=== PATIENT | male | born 1945 | race Caucasian/White ===

== ENCOUNTER 2016-06-19 12:20 | Inpatient (IN) | payer OTHER, BC ==
[~2016-06-19] VITALS: Ht 170.2 cm; Wt 63.9 kg
[~2016-06-19 12:20] MED LIST: ADULT LOW DOSE81 M1 PO; ADVAIR 500/501 DISK IH; ATROVENT 00.5 MG/2.5 IH; CARDIZEM CD,CA180 MG PO; CEFTIN250 MG PO; CILOSTAZOL100 MG PO; FLONASE16 G1 BOTH NARES; HYDROCHLOROTHIA25 MG PO; K-DUR20 MEQ PO; LASIX40 MG PO; LIPITOR40 MG PO; LO-DOSE ASPIRIN81 M1 PO; PANTOPRAZOLE SO40 MG PO; PLETAL100 M1 PO; PREDNISONE10 MG PO; TOPROL XL25 MG PO; TRAMADOL HCL50 MG PO; TYLENOL EXTRA500 MG PO; VENTOLIN HFA18 GM IH; XOPENEX1.25 MG/0. AEROSOL
[2016-06-19 13:02] LABS: HEMATOCRIT 40.2 % (38.0-50.0); MCH 31.6 PG (29.0-34.0); MCHC 34.1 G/DL (30.0-36.0); MCV 92.6 FL (86-99); MEAN PLAT.VOLUME 9.6 uM^3 (9.0-12.4); PLATELET COUNT 229 K/uL (156-360); RBC DIS.WIDTH-CV 12.4 % (11.8-14.6); RBC DIS.WIDTH-SD 42.5 % (39-53); RED BLOOD COUNT 4.34 M/uL (4.00-5.50)
[2016-06-19 13:03] LABS: WHITE BLOOD COUNT 14.6 K/uL (4.1-10.2)
[2016-06-19 13:11] LABS: CHLORIDE 102 mEq/L (99-109); POTASSIUM 3.7 mEq/L (3.7-5.4); SODIUM 137 mEq/L (136-147)
[2016-06-19 13:12] LABS: GLUCOSE 123 mg/dL (70-99)
[2016-06-19 13:14] LABS: ANION GAP 11 MEQ/L (2-14)
[2016-06-19 13:16] LABS: GFR ESTIMATE (CALCULATED) 53 mL/min/
[2016-06-19 13:17] LABS: UREA NITROGEN (BUN) 21 mg/dL (9-23)
[2016-06-19 13:23] LABS: TROP-I INTERPRETATION NEGATIVE; TROPONIN-I 0.05 ng/mL (0.0-0.30)
[2016-06-19] MEDS ORDERED: TAMSULOSIN HCL0.4 MG PO (15:23)
[2016-06-19] MEDS ORDERED: NASONEX17 GM BOTH NARES (15:23)
[2016-06-19] MEDS ORDERED: PREDNISONE10 MG PO (15:23)
[2016-06-19] MEDS ORDERED: FINASTERIDE5 MG PO (15:24)
[2016-06-19] MEDS ORDERED: CENTRUM SILVER1 EAC3 PO (15:24)
[2016-06-19] MEDS ORDERED: VENTOLIN HFA18 GM IH (15:25)
[2016-06-19 23:50] VITALS: BP 114/69
[2016-06-20 04:20] VITALS: BP 110/71
[2016-06-20 06:06] LABS: HEMATOCRIT 35.1 % (38.0-50.0); MCH 31.4 PG (29.0-34.0); MCHC 34.5 G/DL (30.0-36.0); MCV 91.2 FL (86-99); MEAN PLAT.VOLUME 10.2 uM^3 (9.0-12.4); PLATELET COUNT 215 K/uL (156-360); RBC DIS.WIDTH-CV 12.4 % (11.8-14.6); RBC DIS.WIDTH-SD 41.5 % (39-53); RED BLOOD COUNT 3.85 M/uL (4.00-5.50); WHITE BLOOD COUNT 11.4 K/uL (4.1-10.2)
[2016-06-20 06:25] LABS: ANION GAP 13 MEQ/L (2-14); CHLORIDE 99 MEQ/L (99-109); GFR ESTIMATE (CALCULATED) 49 mL/min/; POTASSIUM 3.4 MEQ/L (3.7-5.4); SAMPLE HEMOLYSIS CHECK 0; SAMPLE ICTERIC CHECK 0; SAMPLE LIPEMIA CHECK 0; SODIUM 135 MEQ/L (136-147)
[2016-06-20 06:29] LABS: GLUCOSE 253 mg/dL (70-99); UREA NITROGEN (BUN) 33 mg/dL (9-23)
[2016-06-20 07:54] VITALS: BP 121/64
[2016-06-20 08:02] LABS: INTERNAL CONTROL VALID? YES
[2016-06-20 11:33] VITALS: BP 124/68
[2016-06-20 15:54] VITALS: BP 110/60
[2016-06-20 20:02] VITALS: BP 123/55
[2016-06-21] VITALS: BP 114/62
[2016-06-21 04:00] VITALS: BP 119/59
[2016-06-21 06:01] LABS: ANION GAP 9 MEQ/L (2-14); CHLORIDE 102 MEQ/L (99-109); GFR ESTIMATE (CALCULATED) 37 mL/min/; GLUCOSE 241 mg/dL (70-99); POTASSIUM 3.6 MEQ/L (3.7-5.4); SAMPLE HEMOLYSIS CHECK 0; SAMPLE ICTERIC CHECK 0; SAMPLE LIPEMIA CHECK 0; SODIUM 135 MEQ/L (136-147); UREA NITROGEN (BUN) 49 mg/dL (9-23)
[2016-06-21 06:18] LABS: EOSINOPHIL (%) 0 % (0-5); IMMATURE GRANULOCYTE (%) 0.7 % (0.0-0.7); IMMATURE GRANULOCYTE COUNT 0.1 K/uL; INSTRUMENT ABS NEUTROPHIL CT 13.9 K/uL; LYMPHOCYTE COUNT 0.4 K/uL (1.0-2.8); MCHC 34.1 G/DL (30.0-36.0); MCV 90.9 FL (86-99); MEAN PLAT.VOLUME 10.2 uM^3 (9.0-12.4); MONOCYTE (%) 4.6 % (3-12); MONOCYTE COUNT 0.7 K/uL (0-0.8); NEUTROPHIL COUNT 13.9 K/uL (1.8-6.4); PLATELET COUNT 241 K/uL (156-360); RBC DIS.WIDTH-CV 12.4 % (11.8-14.6); RBC DIS.WIDTH-SD 41.4 % (39-53); RED BLOOD COUNT 3.74 M/uL (4.00-5.50)
[2016-06-21 06:27] LABS: WHITE BLOOD COUNT 15.1 K/uL (4.1-10.2)
[2016-06-21 08:06] VITALS: BP 103/63
[2016-06-21 08:15] LABS: Estimated Average Glucose 128 mg/dL (70-123); HEMOGLOBIN A1c (GLYCOHEMOGLOB) 6.1 % HGB (Below 5.7)
[2016-06-21 11:13] VITALS: BP 108/58
[2016-06-21 15:13] VITALS: BP 111/61
[2016-06-21 20:00] VITALS: BP 134/58
[2016-06-22] VITALS (7 sets, daily range): BP systolic 105–147; BP diastolic 58–93
[2016-06-22 07:08] LABS: HEMATOCRIT 33.3 % (38.0-50.0); MCH 31.2 PG (29.0-34.0); MCHC 34.2 G/DL (30.0-36.0); MCV 91.2 FL (86-99); MEAN PLAT.VOLUME 10.3 uM^3 (9.0-12.4); PLATELET COUNT 259 K/uL (156-360); RBC DIS.WIDTH-CV 12.4 % (11.8-14.6); RBC DIS.WIDTH-SD 41.6 % (39-53); RED BLOOD COUNT 3.65 M/uL (4.00-5.50); WHITE BLOOD COUNT 13.7 K/uL (4.1-10.2)
[2016-06-22 07:31] LABS: ANION GAP 10 MEQ/L (2-14); CHLORIDE 101 MEQ/L (99-109); GFR ESTIMATE (CALCULATED) 40 mL/min/; GLUCOSE 193 mg/dL (70-99); SAMPLE HEMOLYSIS CHECK 0; SAMPLE ICTERIC CHECK 0; SAMPLE LIPEMIA CHECK 0; SODIUM 135 MEQ/L (136-147); UREA NITROGEN (BUN) 52 mg/dL (9-23)
[2016-06-22 07:32] LABS: POTASSIUM 4.4 MEQ/L (3.7-5.4)
[2016-06-22 10:49] LABS: D-DIMER ELISA 0.29 mg/L FEU (< 0.57)
[2016-06-22 15:34] LABS: MAGNESIUM 2.5 mg/dl (1.3-2.7); URIC ACID 11.1 mg/dL (3.1-9.2)
[2016-06-22 19:40] LABS: ADD MIUA? NO; BILIRUBIN NEGATIVE; BLOOD NEGATIVE; COLOR YELLOW ((YELLOW)); GLUCOSE (STRIP) NEGATIVE; KETONES NEGATIVE; LEUKOCYTES NEGATIVE; NITRITE NEGATIVE; PROTEIN (STRIP) NEGATIVE; SPECIFIC GRAVITY 1.021 (1.000-1.030); UROBILINOGEN 0.2 MG/DL (0.2-1.0)
[2016-06-22 20:05] LABS: UR CREATININE CONCENTRATION 113.9 MG/DL
[2016-06-23 04:03] VITALS: BP 137/72
[2016-06-23 06:47] LABS: ANION GAP 7 MEQ/L (2-14); CHLORIDE 103 MEQ/L (99-109); GFR ESTIMATE (CALCULATED) 49 mL/min/; GLUCOSE 249 mg/dL (70-99); POTASSIUM 4.8 MEQ/L (3.7-5.4); SAMPLE HEMOLYSIS CHECK 0; SAMPLE ICTERIC CHECK 0; SAMPLE LIPEMIA CHECK 0; SODIUM 136 MEQ/L (136-147); UREA NITROGEN (BUN) 42 mg/dL (9-23); URIC ACID 8.7 mg/dL (3.1-9.2)
[2016-06-23 08:30] VITALS: BP 143/70
[2016-06-23 11:46] VITALS: BP 136/65
[2016-06-23 16:41] VITALS: BP 140/70
[2016-06-23 20:19] VITALS: BP 141/69
[2016-06-23 23:27] VITALS: BP 121/60
[2016-06-24 06:42] LABS: HEMATOCRIT 35.7 % (38.0-50.0); MCH 30.6 PG (29.0-34.0); MCHC 33.1 G/DL (30.0-36.0); MCV 92.5 FL (86-99); MEAN PLAT.VOLUME 10.5 uM^3 (9.0-12.4); PLATELET COUNT 283 K/uL (156-360); RBC DIS.WIDTH-CV 12.6 % (11.8-14.6); RBC DIS.WIDTH-SD 42.9 % (39-53); RED BLOOD COUNT 3.86 M/uL (4.00-5.50); WHITE BLOOD COUNT 12.9 K/uL (4.1-10.2)
[2016-06-24 07:33] LABS: ANION GAP 6 MEQ/L (2-14); CHLORIDE 102 MEQ/L (99-109); GFR ESTIMATE (CALCULATED) 58 mL/min/; GLUCOSE 210 mg/dL (70-99); POTASSIUM 4.9 MEQ/L (3.7-5.4); SAMPLE HEMOLYSIS CHECK 0; SAMPLE ICTERIC CHECK 0; SAMPLE LIPEMIA CHECK 0; SODIUM 134 MEQ/L (136-147); UREA NITROGEN (BUN) 36 mg/dL (9-23)
[2016-06-24 07:43] VITALS: BP 125/67
[2016-06-24 11:39] VITALS: BP 118/63
[2016-06-24 17:00] VITALS: BP 138/67
[2016-06-24 19:35] VITALS: BP 127/62
[2016-06-24 23:46] VITALS: BP 113/72
[2016-06-25 03:37] VITALS: BP 120/67
[2016-06-25 07:31] VITALS: BP 125/64
[2016-06-25 11:23] VITALS: BP 116/67
[2016-06-25] MEDS ORDERED: PREDNISONE20 MG PO (12:22)
[2016-06-25] MEDS ORDERED: MUCINEX600 MG PO (12:22)
[2016-06-25 16:29] VITALS: BP 154/65
[2016-06-25 19:42] VITALS: BP 131/81
[2016-06-25 23:47] VITALS: BP 122/64
[2016-06-26] VITALS (7 sets, daily range): BP systolic 114–152; BP diastolic 58–77
[2016-06-26 01:40] LABS: CHLORIDE 104 mEq/L (99-109); POTASSIUM 4.8 mEq/L (3.7-5.4); SODIUM 135 mEq/L (136-147)
[2016-06-26 01:41] LABS: MAGNESIUM 2.3 mg/dL (1.3-2.7)
[2016-06-26 01:42] LABS: GLUCOSE 225 mg/dL (70-99)
[2016-06-26 01:44] LABS: ANION GAP 6 MEQ/L (2-14)
[2016-06-26 01:46] LABS: ALKALINE PHOSPHATASE 69 IU/L (3-129); GFR ESTIMATE (CALCULATED) > 59 mL/min/
[2016-06-26 01:47] LABS: UREA NITROGEN (BUN) 32 mg/dL (9-23)
[2016-06-26 01:53] LABS: TROP-I INTERPRETATION NEGATIVE; TROPONIN-I 0.03 ng/mL (0.0-0.30)
[2016-06-26] MEDS ORDERED: CEFDINIR300 MG PO (07:46)
[2016-06-27 04:00] VITALS: BP 146/64
[2016-06-27 08:06] VITALS: BP 140/71
[2016-06-27 11:07] VITALS: BP 132/91
[2016-06-27] MEDS ORDERED: LOPRESSOR25 MG PO (12:01)
[2016-06-27] MEDS ORDERED: DILTIAZEM 24HR180 MG PO (12:02)
[2016-06-27] MEDS ORDERED: DOCUSATE SODIU100 MG PO (12:03)
[2016-06-27] MEDS ORDERED: MEDROL DOSEPAK4 MG PO (12:03)
== END 2016-06-27 13:54 | disposition home health service (06) | DRG 190 ==
LOC: EME 12:20 → 5SOUTH 15:57 → EDOF 15:57 → 5SOUTH 17:43
PROVIDERS: Hospitalist; Internal Medicine; Physician Assistant; Physician Assistant Medical
DX: J44.1 Chronic obstructive pulmonary disease with (acute) exacerbation (principal); J96.21 Acute and chronic respiratory failure with hypoxia; J18.9 Pneumonia, unspecified organism; J81.1 Chronic pulmonary edema; N17.9 Acute kidney failure, unspecified; I50.30 Unspecified diastolic (congestive) heart failure; I48.0 Paroxysmal atrial fibrillation; I47.1 Supraventricular tachycardia; I27.2 Other secondary pulmonary hypertension; Z99.81 Dependence on supplemental oxygen; I27.81 Cor pulmonale (chronic); I73.9 Peripheral vascular disease, unspecified; J40 Bronchitis, not specified as acute or chronic; I10 Essential (primary) hypertension; E78.5 Hyperlipidemia, unspecified; Z87.891 Personal history of nicotine dependence; I25.10 Atherosclerotic heart disease of native coronary artery without angina pectoris; Z88.8 Allergy status to other drugs, medicaments and biological substances; I47.2 Ventricular tachycardia; N40.0 Benign prostatic hyperplasia without lower urinary tract symptoms
CPT/HCPCS: 71010; 71020; 71250; 76770; 80048; 80069; 81003; 82436; 82570; 83036; 83735; 84075; 84156; 84300; 84484; 84550; 85025; 85027; 85379; 87070; 87205; 87449; 93005; 93306; 94640; 94640 76; 94667; 94668; 94760; 94799; 99202; 99281; 99285; J0696; J1644; J1940; J2405; J2920; J2930; J7050; J7512